=== PATIENT | male | born 1975 | race Caucasian/White ===

== ENCOUNTER 2020-04-28 22:22 | Emergency (ER) | payer BC, MEDICAID ==
[~2020-04-28] VITALS: Ht 167.6 cm; Wt 77.3 kg
[2020-04-28] MEDS ORDERED: HYDROCORTISONE 2.5% 30 GM CREAM TP ONE (23:45)
[2020-04-29] MEDS ORDERED: LIDOCAINE 1%/EPI 1:200,000/PF 10 ML VIAL INJ ONE
[2020-04-29] MEDS ORDERED: LIDOCAINE 1%/EPI 1:200,000/PF 30 ML VIAL INJ ONE (00:45)
[2020-04-29 03:25] VITALS: BP 125/71
[2020-04-29] MEDS ORDERED: PERTUSS(ACELL),DIPH,TET VAC/PF 0.5 ML VIAL IM ONE (03:30)
== END 2020-04-29 03:45 | disposition home or self-care (01) ==
LOC: EMS 22:22
DX: K64.5 Perianal venous thrombosis (principal)
CPT/HCPCS: 46320; 90471; 90715; 99284; J3490; 12001; 12011